=== PATIENT | male | born 1955 | race Hispanic/Latino ===

== ENCOUNTER 2019-10-11 01:22 | Emergency (ER) | payer BC, MEDICARE ==
[2019-10-11] MEDS ORDERED: ONDANSETRON HCL 4 MG/2 ML VIAL ONE (01:51)
[2019-10-11] MEDS ORDERED: MORPHINE SULFATE 4 MG/1ML SYG ONE ×2 (01:51→02:48)
[2019-10-11] MEDS ORDERED: POTASSIUM CHLORIDE 20 MEQ ERTAB PO ONE (02:21)
[2019-10-11] MEDS ORDERED: TAMSULOSIN HCL 0.4 MG CAP.ER.24H ONE (02:56)
[2019-10-11] MEDS ORDERED: LABETALOL HCL 5 MG/ML 20ML VIAL IV ONE (03:42)
== END 2019-10-11 04:18 | disposition home or self-care (01) ==
LOC: EDH 01:22
DX: N13.2 Hydronephrosis with renal and ureteral calculous obstruction (principal); R03.0 Elevated blood-pressure reading, without diagnosis of hypertension
CPT/HCPCS: 36415; 74176; 80053; 81001; 85025; 87088; 93005; 96374; 96375; 96376; 99285; J2270 ×2; J2405

== ENCOUNTER 2022-11-14 19:46 | Emergency (ER) | payer OTHER ==
[~2022-11-14] VITALS: Ht 180.3 cm; Wt 95.3 kg
[2022-11-14 19:50] VITALS: BP 157/95
[2022-11-14] MEDS ORDERED: IBUPROFEN 600 MG TABLET PO ONE (20:30)
[2022-11-14] MEDS ORDERED: CYCL10TA16 PO (20:58)
== END 2022-11-14 21:59 | disposition home or self-care (01) ==
LOC: EDH 19:46
DX: M62.830 Muscle spasm of back (principal); V89.2XXA Person injured in unspecified motor-vehicle accident, traffic, initial encounter; Y93.89 Activity, other specified; Y92.89 Other specified places as the place of occurrence of the external cause; Y99.8 Other external cause status
CPT/HCPCS: 71111